=== PATIENT | female | born 2005 | race Caucasian/White ===

== ENCOUNTER 2023-07-03 14:00 | Outpatient (CLI) | payer BC, SELFPAY | END 2023-07-03 14:01 | disposition home or self-care (01) | PROVIDERS: Visit Provider Obstetrics & Gynecology | DX: N91.1 Secondary amenorrhea (principal); R79.89 Other specified abnormal findings of blood chemistry | CPT/HCPCS: 82670; 83001; 83002; 84146; 84443 ==